=== PATIENT | female | born 1970 | race African-American/Black ===

== ENCOUNTER 2020-09-05 18:40 | Emergency (ER) | payer BC ==
[~2020-09-05] VITALS: Ht 160 cm; Wt 82.0 kg
[2020-09-05] MEDS ORDERED: MAGNESIUM/ALUMINUM HYDROXIDE/SIMETHICONE 30ML UDC PO STA (19:12)
[2020-09-05] MEDS ORDERED: VISCOUS LIDOCAINE 2% 15 ML UDC PO STA (19:12)
[2020-09-05] MEDS ORDERED: ONDANSETRON 4MG ODT PO STA (19:12)
[2020-09-05 19:53] LABS: CLARITY URINE CLEAR (CLEAR); COLOR URINE YELLOW (YELLOW); KETONES URINE 1+ (NEGATIVE); LEUKOCYTE ESTERASE URINE NEGATIVE (NEGATIVE); NITRITE URINE NEGATIVE (NEGATIVE); OCCULT BLOOD URINE 1+ (NEGATIVE); PH URINE 5.5 (4.5-8.0); PROTEIN URINE NEGATIVE (NEGATIVE); SPECIFIC GRAVITY URINE 1.022 (1.005-1.030); UROBILINOGEN URINE 0.2 E.U./dL (0.2-1.0)
[2020-09-05 20:03] LABS: *AMPHETAMINES SCREEN URINE NEGATIVE (NEGATIVE); *BARBITURATES SCREEN URINE NEGATIVE (NEGATIVE); *BENZODIAZEPINES SCREEN URINE NEGATIVE (NEGATIVE); *COCAINE SCREEN URINE NEGATIVE (NEGATIVE)
[2020-09-05 20:04] LABS: CANNABINOID URINE SCREEN PRESUMTIVE POSITIVE (NEGATIVE); METHADONE URINE SCREEN NEGATIVE (NEGATIVE); OPIATES URINE SCREEN NEGATIVE (NEGATIVE); PHENCYCLIDINE URINE SCREEN NEGATIVE (NEGATIVE)
[2020-09-05 20:41] LABS: BASOPHILS % 1.1 % (0.0-2.0); EOSINOPHILS % 0.4 % (0.0-5.0); HEMOGLOBIN. 13.5 g/dL (12.0-16.0); LYMPHOCYTES % 22.4 % (20.0-50.0); MEAN CORPUSCULAR HEMOGLOBIN 29.3 pg (28.0-32.0); MEAN PLATELET VOLUME 8.3 fl (7.4-10.4); MONOCYTES % 8.3 % (2.0-8.0); NEUTROPHILS % 67.8 % (40.0-76.0); PLATELET 250 x1000/uL (130-400); RED BLOOD CELL COUNT 4.61 mill/uL (4.2-5.4); RED CELL DISTRIBUTION WIDTH 13.6 % (11.6-14.6)
[2020-09-05 20:46] LABS: CHLORIDE 111 mEq/L (98-107)
[2020-09-05 20:49] LABS: PROTHROMBIN TIME 10.7 sec (9.6-11.0)
[2020-09-05] MEDS ORDERED: ONDA4TAB11 PO (21:42)
[2020-09-05] MEDS ORDERED: PROT40 PO (21:42)
[2020-09-05 21:58] VITALS: BP 125/75
== END 2020-09-05 22:02 | disposition home or self-care (01) ==
LOC: ER 18:40
DX: R10.13 Epigastric pain (principal); R11.2 Nausea with vomiting, unspecified; I10 Essential (primary) hypertension; J45.909 Unspecified asthma, uncomplicated
CPT/HCPCS: 36415; 76705; 80053; 80305; 81003; 81025; 83690; 85025; 85610; 93005; 99285; Q0162